=== PATIENT | female | born 1965 | race Caucasian/White ===

== ENCOUNTER 2016-12-14 23:34 | Emergency (ER) | payer SELFPAY ==
[~2016-12-14] VITALS: Ht 160 cm; Wt 86.4 kg
[2016-12-14] MEDS ORDERED: AMLO-512 PO (23:39)
[2016-12-14 23:55] VITALS: BP 142/81
[2016-12-15] MEDS ORDERED: PROPARACAINE HCL 0.5% 15 ML OPHTHALMIC SOLUTION OD ONE
[2016-12-15] MEDS ORDERED: FLUORESCEIN SODIUM 1 MG STRIP ONE (00:02)
== END 2016-12-15 00:36 | disposition home or self-care (01) ==
LOC: EMS 23:37
DX: S05.01XA Injury of conjunctiva and corneal abrasion without foreign body, right eye, initial encounter (principal); I10 Essential (primary) hypertension; Z88.5 Allergy status to narcotic agent; X58.XXXA Exposure to other specified factors, initial encounter; Y93.89 Activity, other specified; Y92.89 Other specified places as the place of occurrence of the external cause; Y99.8 Other external cause status
CPT/HCPCS: 99283